=== PATIENT | male | born 1960 | race Caucasian/White ===

== ENCOUNTER 2017-02-19 09:03 | Emergency (ER) | payer BC ==
[2017-02-19 09:21] VITALS: BP 123/70
--- NOTE | 2017-02-19 09:44 | UC ---
Back Pain HPI - HPI Summary HPI Summary: Acute L flank pain started 3 days ago, felt like a dull ache, took a couple days to go away. Yesterday did not have flank pain (though did have normal back pain). This morning at 0830 sudden onset severe sharp L flank pain, not better or worse with moving. Denies n/v, having normal BMs and normal urination. No fever or recent illness. FHX of kidney stones. - History of Current Complaint Chief Complaint: UCBackPain Stated Complaint: LOWER BACK PAIN Time Seen by Provider: 02/19/17 09:22 Hx Obtained From: Patient Onset/Duration: Sudden Onset Timing: Constant Severity Initially: Severe Severity Currently: Moderate Back Pain: Is Discrete @ Character: Sharp Associated Signs And Symptoms: Positive: Flank Pain. Negative: Redness, Bruising, Weakness, Numbness - Allergies/Home Medications Allergies/Adverse Reactions: Allergies Allergy/AdvReac Type Severity Reaction Status Date / Time Penicillins [PCN] Allergy Rash Verified 02/19/17 09:25 Home Medications: Home Medications Levalbuterol HFA INHALER* [Xopenex Hfa Inhaler*] 02/19/17 [History] PMH/Surg Hx/FS Hx/Imm Hx Previously Healthy: Yes - Surgical History Surgical History: Yes Surgery Procedure, Year, and Place: TONSILS. LEFT WRIST ARTHROSCOPY. INCISION & DRAINAGE LEFT FOREFINGER - Family History Known Family History: Positive: Renal Disease - stones - Social History Occupation: Employed Full-time - dental surgeon Alcohol Use: Occasionally Substance Use Type: None Smoking Status (MU): Never Smoked Tobacco Review of Systems Constitutional: Negative Skin: Negative Eyes: Negative ENT: Negative Respiratory: Negative Cardiovascular: Negative Gastrointestinal: Negative Genitourinary: Other - L flank pain Motor: Negative Neurovascular: Negative Musculoskeletal: Negative Neurological: Negative Psychological: Negative All Other Systems Reviewed And Are Negative: Yes Physical Exam Triage Information Reviewed: Yes Appearance: Well-Nourished, Pain Distress - mild Vital Signs: Initial Vital Signs Temp 97.4 F 02/19/17 09:06 Pulse 82 02/19/17 09:06 Resp 16 02/19/17 09:06 BP 123/70 02/19/17 09:06 Pulse Ox 97 02/19/17 09:06 Vital Signs Reviewed: Yes Eye Exam: Normal Eyes: Positive: Conjunctiva Clear ENT Exam: Normal ENT: Positive: Normal ENT inspection, Hearing grossly normal, Pharynx normal, TMs normal Dental Exam: Normal Neck exam: Normal Neck: Positive: Supple, Nontender, No Lymphadenopathy Respiratory Exam: Normal Respiratory: Positive: Chest non-tender, Lungs clear, Normal breath sounds, No respiratory distress, No accessory muscle use Cardiovascular Exam: Normal Cardiovascular: Positive: RRR, No Murmur Abdomen Description: Positive: Soft. Negative: CVA Tenderness (R), CVA Tenderness (L) Musculoskeletal Exam: Normal Musculoskeletal: Positive: Strength Intact, ROM Intact Neurological Exam: Normal, Other - DTRs 2+ BLE Psychological Exam: Normal Skin Exam: Normal Back Pain Course/Dx - Differential Dx/Diagnosis Provider Diagnoses: Suspect L nephrolithiasis. Elevated blood pressure due to pain Discharge - Discharge Plan Condition: Stable Disposition: HOME
== END 2017-02-19 10:05 | disposition home or self-care (01) ==
LOC: UCEAST 09:03
DX: R10.32 Left lower quadrant pain (principal); R03.0 Elevated blood-pressure reading, without diagnosis of hypertension
CPT/HCPCS: 81003; 99212; G0463